=== PATIENT | female | born 1945 | race Caucasian/White ===

== ENCOUNTER 2023-12-01 14:55 | Outpatient (RCR) | payer MEDICARE, SELFPAY | END 2023-12-01 23:59 | disposition home or self-care (01) | LOC: RST 14:55 | PROVIDERS: ATTENDING PHYSICIAN Family Medicine | DX: R29.818 Other symptoms and signs involving the nervous system (principal); R41.841 Cognitive communication deficit | CPT/HCPCS: 96125; 97110; 97112; 97530; 97535 ==

== ENCOUNTER 2023-12-29 13:02 | Outpatient (RCR) | payer MEDICARE, SELFPAY | END 2023-12-29 23:59 | disposition home or self-care (01) | LOC: RST 13:02 | PROVIDERS: ATTENDING PHYSICIAN Family Medicine | DX: R29.818 Other symptoms and signs involving the nervous system (principal); Z73.6 Limitation of activities due to disability | CPT/HCPCS: 97110; 97112; 97116; 97530; 97535 ==

== ENCOUNTER 2024-01-19 13:35 | Outpatient (RCR) | payer MEDICARE, SELFPAY | END 2024-01-20 07:37 | disposition home or self-care (01) | LOC: RST 13:35 | PROVIDERS: ATTENDING PHYSICIAN Family Medicine | DX: R29.818 Other symptoms and signs involving the nervous system (principal); Z73.6 Limitation of activities due to disability; R41.841 Cognitive communication deficit | CPT/HCPCS: 97110; 97112; 97530; 97535 ==

== ENCOUNTER 2025-03-20 06:22 | Day surgery (SDC) | payer MEDICARE, SELFPAY ==
[2025-03-20 10:56] LABS: Glucose - Point of Care 157 mg/dl (70-99)
== END 2025-03-20 13:12 | disposition home or self-care (01) ==
LOC: GI 06:22
PROVIDERS: ATTENDING PHYSICIAN Internal Medicine Gastroenterology
DX: Z12.11 Encounter for screening for malignant neoplasm of colon (principal); R19.4 Change in bowel habit; K64.8 Other hemorrhoids; K63.5 Polyp of colon; K57.30 Diverticulosis of large intestine without perforation or abscess without bleeding; Z86.0100 Personal history of colon polyps, unspecified
CPT/HCPCS: 45380; 88305; 82962

== ENCOUNTER → 2025-04-18 12:51 | Outpatient (REF) | payer MEDICARE, SELFPAY | LOC: HWRAD 12:51 | PROVIDERS: ATTENDING PHYSICIAN Family Medicine | DX: Z20.828 Contact with and (suspected) exposure to other viral communicable diseases (principal) | CPT/HCPCS: 71250 ==

== ENCOUNTER → 2025-08-16 06:00 | Outpatient (REF) | payer MEDICARE, SELFPAY | LOC: CLAB 06:00 | PROVIDERS: ATTENDING PHYSICIAN Orthopaedic Surgery Hand Surgery | DX: R22.32 Localized swelling, mass and lump, left upper limb (principal) | CPT/HCPCS: 88304 ==